=== PATIENT | female | born 2005 | race Two or more races ===

== ENCOUNTER 2024-10-11 16:29 | Emergency (ER) | payer MEDICAID, SELFPAY ==
[2024-10-11 16:59] VITALS: BP 102/67; PULSE 96; RESP 18; TEMP 37; O2SAT 97
[2024-10-11 17:23] VITALS: BMI 20.9
--- NOTE | 2024-10-11 18:40 | XR_ITS ---
Examination: Complete OB ultrasound greater than 14 weeks Date and time of exam: October 11, 2024 1051 hrs. Indications: Pelvic pain today Findings: Viable intrauterine single fetus with single amniotic sac presentation cephalic Cardiac motion 143 BPM Placenta fundal grade 1 Umbilical cord insertion seen Amniotic fluid index 6.1 cm spine anterior Cervix 7.5 cm Right ovary 3.2 x 1.8 x 2.9 cm arterial flow Left ovary obscured by bowel gas. Composite estimated gestational age based on BPD, head circumference, abdominal circumference, femur length is 17 weeks 5 days Estimated weight 206.2 g. Survey of intracranial anatomy, spinal anatomy, abdominal anatomy, four-chamber heart performed with no abnormalities identified. Impression: Viable intrauterine gestation cephalic presentation.
--- NOTE | 2024-10-11 18:41 | EDNOTE_ITS ---
ED Syncope RME/HPI General Chief Complaint: Syncope / Near Syncope Stated Complaint: SYNCOPAL EPISODE, 16 WKS PREG Time Seen by Provider: 10/11/24 18:30 Arrival date/time: 10/11/24 16:29 This is a 19-year-old female that comes in with complaints of near syncope that happened today while she was at [facility]. Patient states she was has a headache and had some dizziness prior to falling. Patient reports that she is 16 weeks . Patient is a 2 para 1. Patient has a history of cerebral palsy and has a seizure history in the past when she was younger. Patient does not take medication for this anymore. Related Data Home Medications ?Medication ?Instructions ?Recorded ?Confirmed vit no.95-ferrous 1 tab PO QDAY 04/26/23 04/28/23 fumarate 28 mg-folic acid 800 mcg tablet () Previous Rx's ?Medication ?Instructions ?Recorded cephalexin 500 mg capsule 500 mg PO BID #14 caps 10/11/24 Allergies Allergy/AdvReac Type Severity Reaction Status Date / Time No Known Allergies Allergy Verified 04/28/23 10:13 Review of Systems Review of Systems Systems Reviewed: All systems reviewed, normal except as documented Past Medical History Surgical History SURGICAL: Negative Section ED Exam General General appearance: Present alert and in no apparent distress Head Head exam: Present atraumatic Eye Eye exam: Present normal appearance, PERRL and EOMI ENT ENT exam: Present normal exam, normal oropharynx and mucous membranes moist Neck Neck exam: Present normal inspection, full ROM and trachea midline Chest Chest inspection: Present normal inspection and symmetric chest wall rise Respiratory Respiratory exam: Present normal lung sounds bilaterally Cardiovascular Cardiovascular exam: Present regular rate, normal rhythm and normal heart sounds Abdominal Exam Abdominal exam: Present soft Extremities Exam Extremities exam: Present normal inspection and full ROM Back Exam Back exam: Present normal inspection and full ROM Neurological Exam Neurological exam: Present alert, oriented X3 and CN II-XII intact Psychiatric Psychiatric exam: Present normal affect and normal mood Skin Skin exam: Present warm, dry, intact and normal color Course Quality Measures none Orders Category Date Time Status EKG (ED ONLY) *Do not use* NOW Care 10/11/24 18:41 Completed EKG (ED Only) Stat Exams 10/11/24 18:41 Draft US OB >= 14 weeks Fetus Stat Exams 10/11/24 18:40 Completed Beta HCG,Quantitative Stat Lab 10/11/24 18:26 Completed CBC Stat Lab 10/11/24 18:26 Completed Comprehensive Metabolic Panel Stat Lab 10/11/24 18:26 Completed Troponin I Stat Lab 10/11/24 18:26 Completed Urinalysis Stat Lab 10/11/24 20:38 Completed Urine Culture Stat Lab 10/11/24 20:38 Completed Acetaminophen Tab [Tylenol ES Tab] Med 10/11/24 19:40 Discontinued 1,000 mg PO X1 ONE Sodium Chloride 0.9% 1000 ml [Ns] 1,000 ml Med 10/11/24 18:40 Discontinued IV 999 mls/hr cefTRIAXone/D5w 1gm IV premix [Rocephin/D5w 1gm IV Med 10/11/24 20:54 Discontinued premix] 50 ml IV X1 Vital Signs Vital signs: Vital Signs Temperature 98.6 F 10/11/24 16:59 Pulse Rate 96 10/11/24 16:59 Respiratory Rate 18 10/11/24 16:59 Blood Pressure 102/67 10/11/24 16:59 Pulse Oximetry (%) 97 10/11/24 16:59 Oxygen Delivery Method Room Air 10/11/24 16:59 Procedures -ED EKG Interpretation #1: Date of EK10/11/24 Time of EK:08 Rate: 88 Interpretation: Interpreted by me (sinus rhythm ) EKG Impression: No ectopy, Normal QRS and Normal intervals Syncope MDM Narrative MDM Narrative:: US: Findings: Viable intrauterine single fetus with single amniotic sac presentation cephalic Cardiac motion 143 BPM Placenta fundal grade 1 Umbilical cord insertion seen Amniotic fluid index 6.1 cm spine anterior Cervix 7.5 cm Right ovary 3.2 x 1.8 x 2.9 cm arterial flow Left ovary obscured by bowel gas. Composite estimated gestational age based on BPD, head circumference, abdominal circumference, femur length is 17 weeks 5 days Estimated weight 206.2 g. Survey of intracranial anatomy, spinal anatomy, abdominal anatomy, four-chamber heart performed with no abnormalities identified. Impression: Viable intrauterine gestation cephalic presentation. Labs show white count of 11.2 hemoglobin of 11.6 and hematocrit of 35 BMP unremarkable urine showed some leukocyte Estrace with some white blood cells. I asked patient if she is having urinary symptoms she said she is. Will treat her with Rocephin. Patient given a liter of IV fluids. Follow up with primary provider in 1-2 days. Come back to ED if symptoms change or worsen Patient data External records reviewed:: [facility] previous records Clinical information provided by:: patient Social determinants that could affect healthcare access:: none Patient has the following chronic illnesses:: none How is presenting disease/condition affected by chronic disease/condition?: no chronic disease Evaluation data The following diagnostics were reviewed and interpreted by me:: lab results, radiology exam(s) and EKG tracing(s) Lab and/or radiology exams considered but not ordered:: None Interpretation Summary: See note Medications / Prescriptions Medications or Prescriptions considered but not ordered:: None Medication administrations:: Medication Administration History Discontinued Medications Acetaminophen (Acetaminophen 500 Mg Tablet) 1,000 mg PO X1 ONE Stop: 10/11/24 19:41 Last Admin: 10/11/24 19:53 Dose: 1,000 mg Documented By: LULA Sodium Chloride (Ns) 1,000 mls @ 999 mls/hr IV .Q1H1M ONE Stop: 10/11/24 19:40 Last Infusion: 10/11/24 20:51 Dose: Infused Documented By: Admin: 10/11/24 19:31 Dose: 999 mls/hr Documented By: LULA Ceftriaxone Sodium/Dextrose (Rocephin/D5w 1gm Iv Premix) 50 mls @ 100 mls/hr IV X1 ONE Stop: 10/11/24 21:23 Last Infusion: 10/11/24 22:46 Dose: Infused Documented By: Admin: 10/11/24 21:42 Dose: 100 mls/hr Documented By: LULA See MAR Consultations Consultation(s) initiated? (list below): No Diagnosis Syncope Differential Diagnosis: syncope due to orthostatic hypotension, vasovagal syncope and dehydration Most likely diagnosis given after review of the tests above:: dehydration Admission Indicated Admission indicated?: not indicated Admission Request Was there a request for admission?: No Disposition Plan Disposition Plan: Discharge Discharge Attestation Discharge Attestation: The patient and all family members were given an opportunity to ask questions and understood the discharge instructions. Discharge instructions specifically effects, indications for sooner follow up or return to the emergency department, and the expected course of current diagnosis. Patient condition: Stable Discharge Plan Plan Patient Disposition: HOME (Self Care) Patient condition on transfer: Stable Prescriptions/Referrals Prescriptions/Med Rec: New cephalexin 500 mg capsule 500 mg PO BID Qty: 14 0RF No Action PNV cmb#95-ferrous fumarate-FA [] 28 mg iron- 800 mcg Tablet 1 tab PO QDAY Referrals: Ernie Nunez MD [Primary Care Provider] - In 1 week Problem List Clinical Impression: UTI (urinary tract infection) Patient/Caregiver Discharge Instructions Discharge Activity: activity as tolerated Education Materials: ED CYSTITIS Female Adult Additional Instructions: drink plenty of fluid. Follow-up with [facility] in 1 to 2 days. Come back to the emergency room if symptoms change or worsen. Print Language: Ukrainian Stand Alone Forms: Marisol Award Info., Patient Portal Info Letter PA/ROLL CHANGER Supervising Physician PA/ROLL CHANGER Supervising Physician: REJI
--- NOTE | 2024-10-11 18:41 | EKG_ITS ---
[facility] Test Date: 2024-10-11 Pat Name: ASHKAN NAIDU Department: Room: - Gender: Female [place] Roofer Helper: : 2005 Requested By: Reyna Vann Order Number: [id number] Reading MD: Reyna Vann Measurements Intervals [place] Rate: 88 P: 46 RI: 148 QRS: 61 QRSD: 86 T: 39 QT: 358 QTc: 435 Interpretive Statements SINUS RHYTHM No previous ECG available for comparison /store/S0/[id number]/[id number].pdf
[2024-10-11 18:42] LABS: Basophils % (Auto) 0 % (0-2.5); Eosinophils # (Auto) 0.2 Thou/mm3 (0.0-0.5); Eosinophils % (Auto) 2 % (0-10); Hemoglobin 11.6 g/dL (12.0-16.0); Immature Granulocytes % (Auto) 0 % (0-0); Immature Granulocytes Auto 0.04 Thou/mm3 (0.00-0.00); Lymphocytes # (Auto) 2.6 Thou/mm3 (1.0-4.8); Lymphocytes % (Auto) 23 % (10-50); Mean Corpuscular HGB Conc 33.1 g/dl (31.0-37.0); Mean Corpuscular Hemoglobin 27.2 pg (25.0-35.0); Mean Corpuscular Volume 82 fL (80-100); Monocytes # (Auto) 0.7 Thou/mm3 (0.0-0.8); Monocytes % (Auto) 6 % (0-12); Neutrophils # (Auto) 7.7 Thou/mm3 (1.8-7.7); Neutrophils % (Auto) 68 % (37-80); Nucleated Red Blood Cell % 0 /100 WBC (0); Platelet Count 267 Thou/mm3 (140-440); RDW Standard Deviation 41.1 fL (36.4-46.3); Red Blood Count 4.26 Miln/mm3 (4.00-5.20); White Blood Count 11.2 Thou/mm3 (4.5-11.0)
[2024-10-11 19:06] LABS: Alanine Aminotransferase 11 U/L (10-49); Albumin, Serum 4.1 gm/dL (3.5-5.0); Albumin/Globulin Ratio 1.6 (1.2-2.2); Alkaline Phosphatase 81 U/L (46-116); Anion Gap 8 (7-16); Aspartate Amino Transferase < 10 U/L (0-34); BUN/Creatinine Ratio 14 Ratio (12-20); Bilirubin,Total 0.3 mg/dL (0.3-1.2); Blood Urea Nitrogen 7 mg/dL (9-23); Calcium 9.1 mg/dL (8.3-10.6); Calcium (Corrected) 9.1 mg/dL (8.5-10.1); Carbon Dioxide 25.4 mMol/L (20.0-31.0); Chloride 105 mMol/L (98-107); Creatinine (Component) 0.5 mg/dL (0.6-1.3); Estimated Creatinine Clearance 167.1 mL/min (>60); Globulin 2.5 gm/dL (2.3-3.5); Glucose 102 mg/dL (74-106); Osmolality,Calculated 273 (275-295); Potassium 3.9 mMol/L (3.4-5.1); Sodium 138 mMol/L (136-145); Total Protein 6.6 gm/dL (5.7-8.2); eGFR > 60 See Note
[2024-10-11 19:23] VITALS: BP 107/70; PULSE 95; RESP 17; TEMP 36.8; O2SAT 100
[2024-10-11] MEDS: SODIUM CHLORIDE 0.9% 1000 ML 1,000 ML 999 ML IV (19:31)
[2024-10-11 19:37] LABS: Beta HCG,Quantitative 31679 mIU/mL (<5.0); Troponin I < 0.002 ng/mL (0.0-0.045)
[2024-10-11] MEDS: ACETAMINOPHEN 500 MG TABLET 1000 MG PO (19:53)
[2024-10-11 20:44] LABS: Collection Type, Urine Clean Catch; RBC,Urine 0 /hpf (0-3)
[2024-10-11 20:49] LABS: Bacteria,Urine Rare; Bilirubin,Urine Negative (Negative); Blood,Urine Negative (Negative); Clarity,Urine Turbid (Clear/Hazy); Color,Urine Lt-Yellow (Lt Yel-Yel); Glucose, Urine Negative (Negative); Ketones,Urine Negative (Negative); Leukocyte Esterase,Urine Positive (Negative); Nitrite,Urine Negative (Negative); Protein,Urine Negative (Neg - Trace); Specific Gravity,Urine 1.019 (1.001-1.035); Squamous Epithelial Cell,Urine 8 /hpf (0-5); Urobilinogen,Urine Negative mg/dL (0.0-1.0); WBC,Urine 6 /hpf (0-5)
[2024-10-11] MEDS: cefTRIAXone/D5w 1gm IV premix 50 ML IV (21:42)
[2024-10-11 21:43] VITALS: BP 95/59; PULSE 78; RESP 18; TEMP 36.9; O2SAT 99
[2024-10-11 22:20] VITALS: BP 93/59; PULSE 83; RESP 17; TEMP 36.8; O2SAT 99
--- NOTE | 2024-10-11 23:29 | PD.EDADDENDU ---
Emergency Room Addendum Addendum Narrative: 230: Care assumed from Reyna Vann NP. Past medical, surgical, social and family history reviewed. Vitals and home medications reviewed. Results and treatment plan discussed. I will assume the care of the patient at this time and will follow the patient, pending ultrasound. RADIOLOGY DATA: I personally reviewed the radiology data and agree with the radiologist's interpretation. Examination: Complete OB ultrasound greater than 14 weeks Date and time of exam: October 11, 2024 1051 hrs. Indications: Pelvic pain today Findings: Viable intrauterine single fetus with single amniotic sac presentation cephalic Cardiac motion 143 BPM Placenta fundal grade 1 Umbilical cord insertion seen Amniotic fluid index 6.1 cm spine anterior Cervix 7.5 cm Right ovary 3.2 x 1.8 x 2.9 cm arterial flow Left ovary obscured by bowel gas. Composite estimated gestational age based on BPD, head circumference, abdominal circumference, femur length is 17 weeks 5 days Estimated weight 206.2 g. Survey of intracranial anatomy, spinal anatomy, abdominal anatomy, four-chamber heart performed with no abnormalities identified. Impression: Viable intrauterine gestation cephalic presentation. Dictated By: Josafat Corrales MD [id number]: I have spoken with the patient and discussed today?s findings, in addition to providing specific details for the plan of care. Questions are answered and there is an agreement with the plan. Re-assessment at the time of disposition demonstrates that the patient is in no acute distress. The patient has remained stable throughout the entire ED visit and is without objective evidence for acute process requiring urgent intervention or hospitalization. The patient is stable for discharge; counseling is provided and documented as above, discussed symptomatic treatment and specific conditions for return. MD Attestation Attestation ? Scribe Attestation: I, Thalia Pool, am scribing for and in the presence of Dr. Pike. Provider Notation: Although this document has been carefully reviewed, there may still be some phonetic and other typographical errors. These errors are purely grammatical due to imperfections in the software program and should not be construed in any way to compromise the substance of the patient's medical care during this visit.
== END 2024-10-11 23:51 | disposition home or self-care (01) ==
PROVIDERS: Emergency Provider Emergency Medicine; PCP Family Medicine
DX: O23.42 Unspecified infection of urinary tract in pregnancy, second trimester (principal); N39.0 Urinary tract infection, site not specified; Z3A.16 16 weeks gestation of pregnancy
CPT/HCPCS: 36415; 76805; 80053; 81001; 84484; 84702; 85025; 87086; 93005; 96361; 96365; 99284; J0696; J7030; A9270

== ENCOUNTER 2024-12-16 14:41 | Observation (INO) | payer MEDICAID, SELFPAY ==
[2024-12-16 14:51] VITALS: PULSE 84; RESP 18; RESP 98; TEMP 36.7
[2024-12-16 14:57] VITALS: TEMP 36.7; BMI 30.5
[2024-12-16 15:05] VITALS: BP 112/66; PULSE 92
[2024-12-16 15:09] LABS: Collection Type, Urine Clean Catch
[2024-12-16 15:16] LABS: Bacteria,Urine Rare; Bilirubin,Urine Negative (Negative); Blood,Urine Negative (Negative); Clarity,Urine Turbid (Clear/Hazy); Color,Urine Yellow (Lt Yel-Yel); Glucose, Urine Negative (Negative); Ketones,Urine Negative (Negative); Leukocyte Esterase,Urine Positive (Negative); Nitrite,Urine Negative (Negative); Protein,Urine Trace (Neg - Trace); RBC,Urine 6 /hpf (0-3); Specific Gravity,Urine 1.028 (1.001-1.035); Squamous Epithelial Cell,Urine 14 /hpf (0-5); WBC,Urine 29 /hpf (0-5)
[2024-12-16 16:05] LABS: Collection Type, Urine Clean Catch
[2024-12-16 16:25] LABS: Bilirubin,Urine Negative (Negative); Blood,Urine Negative (Negative); Clarity,Urine Clear (Clear/Hazy); Color,Urine Lt-Yellow (Lt Yel-Yel); Glucose, Urine Negative (Negative); Ketones,Urine Negative (Negative); Leukocyte Esterase,Urine Positive (Negative); Nitrite,Urine Negative (Negative); PH,Urine 6.5 (5.0-7.0); Protein,Urine Negative (Neg - Trace); RBC,Urine 2 /hpf (0-3); Specific Gravity,Urine 1.019 (1.001-1.035); Squamous Epithelial Cell,Urine 4 /hpf (0-5); Urobilinogen,Urine Negative mg/dL (0.0-1.0); WBC,Urine 19 /hpf (0-5)
--- NOTE | 2024-12-16 16:55 | PD.LDPN ---
Documentation for date of: 12/16/24 OB Labor Progress Note Status status: Category l Assessment and Plan Comments: Triage Note Patient is a 19yo with SIUP at 27+wk presenting to L&D for some intermittent lower abdominal discomfort. She notes she has some discomfort in her lower abdomen when she voids, however she does not have burning with urination, increased urgency or frequency. She notes sometimes when her baby moves it is very uncomfortable for her. And she has had some discomfort in the backs of her thighs since early , has not changed. She is concerned she may have a UTI, because she presented to ER 10/11 for a few concerns and was diagnosed with UTI and treated with a course of keflex. Review of labs shows that culture was negative, so she did not have a UTI at that time. She has had no lof, no vaginal bleeding. Normal movement. Current : This has been otherwise uncomplicated, she has had regular OB care with CNM Winter Owens Previous pregnancies: history of 1 prior uncomplicated vaginal delivery at term ROS negative other than what was described above. Vitals wnl, afebrile General: well developed, well nourished, no acute distress, conversant Cardiac: normal heart rate Lungs: breathing without distress Abdomen: soft, gravid, non-tender, no rebound or guarding Extremities: no pain with palpation of calves NST: Reassuring for gestational age, +accels, no decels, mod [place]: NO ctx Labs: First UA contaminated with 14 squam Second UA: 19 WBC, 2 RBC, 4 squam, no bacteria, +LE Assessment: Patient is a 19yo with SIUP at 27+wk with no evidence of UTI based on UA. Suspect normal physiologic discomforts of . Vitals wnl, benign exam. Reassuring status. Plan: -Will send UA for culture for confirmation of absence of UTI -Will also run NG/CT/trich testing off of urine sample to rule out vaginitis as cause of patient's symptoms -Patient instructed to inform her CNM at next scheduled visit of testing done today in triage -Discussed return precautions at length -Safe for discharge home at this time Zoie Galeano MD
[2024-12-17 10:11] LABS: BVAG Candida Negative (Negative); Bacterial Vaginosis Markers Positive (Negative); Candida glabrata Negative (Negative); Candida krusei PCR Negative (Negative); Trichomonas Negative (Negative)
[2024-12-17 10:21] LABS: Chlamydia trachomatis PCR Negative (Not Detect); Neisseria Gonorrhoeae DNA PCR Negative (Not Detect); Trichomonas Negative (Negative)
== END 2024-12-16 17:25 | disposition home or self-care (01) ==
PROVIDERS: Admitting Provider Obstetrics & Gynecology; Visit Provider Obstetrics & Gynecology
DX: O26.892 Other specified pregnancy related conditions, second trimester (principal); Z3A.27 27 weeks gestation of pregnancy; R10.30 Lower abdominal pain, unspecified
CPT/HCPCS: 59025; 59899; 81001; 81514; 87086; 87491; 87591; 87661

== ENCOUNTER 2025-02-04 20:37 | Observation (INO) | payer MEDICAID, SELFPAY ==
[2025-02-04 20:37] VITALS: BMI 32.2
[2025-02-04 21:04] VITALS: BP 103/68; PULSE 90; RESP 16; TEMP 37.1; O2SAT 97
--- NOTE | 2025-02-04 21:35 | EDNOTE_ITS ---
ED Headache RME/HPI General Chief Complaint: Dizziness Stated Complaint: DIZZY AND H/A Time Seen by Provider: 02/04/25 21:13 Arrival date/time: 02/04/25 20:37 19F at approximately 34 weeks and with no significant PMH presents to ED with 1 day of ABURTO, dizziness, and blurry vision. Patient denies LOC, fall/trauma, AMS, seizures, N/V, vaginal bleeding, and ab pain. Limitations: no limitations Related Data Home Medications ?Medication ?Instructions ?Recorded ?Confirmed vit no.95-ferrous 1 tab PO QDAY 04/26/2312/06 fumarate 28 mg-folic acid 800 mcg tablet () Previous Rx's ?Medication ?Instructions ?Recorded cephalexin 500 mg capsule 500 mg PO BID #14 caps 10/11 Allergies Allergy/AdvReac Type Severity Reaction Status Date / Time No Known Allergies Allergy Verified 12/16/24 14:51 Review of Systems Review of Systems Systems Reviewed: All systems reviewed, normal except as documented Constitutional Constitutional: Reports system reviewed and no additional complaints, except as documented, Reports as per HPI, Denies fever(s) and Reports headache(s) Eyes Eyes: Reports as per HPI and Reports blurry vision ENT Ears, Nose, Mouth, and Throat: Reports as per HPI, Denies disequilibrium, Reports headache(s) and Reports vertigo Cardiovascular Cardiovascular: Reports system reviewed and no additional complaints, except as documented, Denies chest pain and Denies dyspnea Respiratory Respiratory: Reports system reviewed and no additional complaints, except as documented, Denies cough and Denies dyspnea Gastrointestinal Gastrointestinal: Reports system reviewed and no additional complaints, except as documented, Denies abdominal pain, Denies nausea and Denies vomiting Neurologic Neurologic: Reports system reviewed and no additional complaints, except as documented, Denies confusion, Denies disequilibrium, Reports headache(s) and Reports vertigo Psychiatric Psychiatric: Denies confusion ED Exam General Limitations: Present no limitations General appearance: Present alert and in no apparent distress Head Head exam: Present atraumatic Eye Eye exam: Present normal appearance, PERRL and EOMI ENT ENT exam: Present normal exam, normal oropharynx and mucous membranes moist Neck Neck exam: Present normal inspection, full ROM and trachea midline Chest Chest inspection: Present normal inspection and symmetric chest wall rise Respiratory Respiratory exam: Present normal lung sounds bilaterally Cardiovascular Cardiovascular exam: Present regular rate, normal rhythm and normal heart sounds Abdominal Exam Abdominal exam: Present soft and normal bowel sounds Extremities Exam Extremities exam: Present normal inspection and full ROM Back Exam Back exam: Present normal inspection and full ROM Neurological Exam Neurological exam: Present alert, oriented X3 and CN II-XII intact Psychiatric Psychiatric exam: Present normal affect and normal mood Skin Skin exam: Present warm, dry, intact and normal color Course Quality Measures none Vital Signs Vital signs: Vital Signs Temperature 98.7 F 02/04/25 21:04 Pulse Rate 90 02/04/25 21:04 Respiratory Rate 16 02/04/25 21:04 Blood Pressure 103/68 02/04/25 21:04 Pulse Oximetry (%) 97 02/04/25 21:04 Oxygen Delivery Method Room Air 02/04/25 21:04 O2 at 95% on RA and WNLs Headache MDM Narrative MDM Narrative:: 19F at approximately 34 weeks and with no significant PMH presents to ED with 1 day of ABURTO, dizziness, and blurry vision. Patient denies LOC, fal l/trauma, AMS, seizures, N/V, vaginal bleeding, and ab pain. Physical exam reveals normal pupil response and EOM. CN II-XII grossly intact. Neck ROM intact. Patient is afebrile, calm, and alert. Cleared to OB. Patient data External records reviewed:: [facility] previous records Clinical information provided by:: patient Social determinants that could affect healthcare access:: none Patient has the following chronic illnesses:: none How is presenting disease/condition affected by chronic disease/condition?: no chronic disease Evaluation data The following diagnostics were reviewed and interpreted by me:: other (specify) (none) Lab and/or radiology exams considered but not ordered:: not ordered Interpretation Summary: n/a Medications / Prescriptions Medications or Prescriptions considered but not ordered:: not ordered Medication administrations:: n/a Consultations Consultation(s) initiated? (list below): No Diagnosis Differential diagnosis headache: migraine, tension headache, subarachnoid hemorrhage, headache, meningitis, sinusitis, postconcussion syndrome and other (pre-eclampsia) Most likely diagnosis given after review of the tests above:: ABURTO Admission Indicated Admission indicated?: not indicated Admission Request Was there a request for admission?: No Disposition Plan Disposition Plan: Discharge Discharge Attestation Discharge Attestation: The patient and all family members were given an opportunity to ask questions and understood the discharge instructions. Discharge instructions specifically effects, indications for sooner follow up or return to the emergency department, and the expected course of current diagnosis. Patient condition: Stable Discharge Plan Plan Patient Disposition: HOME (Self Care) Disposition Comment: Stable Prescriptions/Referrals Prescriptions/Med Rec: No Action cephalexin 500 mg capsule 500 mg PO BID Qty: 14 0RF PNV cmb#95-ferrous fumarate-FA [] 28 mg iron- 800 mcg Tablet 1 tab PO QDAY Problem List Clinical Impression: Headache Patient/Caregiver Discharge Instructions Education Materials: Self-Care for Headaches Additional Instructions: Please follow-up with PCP/OBGYN within 24-48 hours and return immediately if symptoms worsen. Print Language: Thai Stand Alone Forms: Patient Portal Info Letter EMERSON/JULIA Supervising Physician EMERSON/JULIA Supervising Physician: Dr. Lloyd
[2025-02-04 21:48] VITALS: BP 117/59; PULSE 93; RESP 18; RESP 99; TEMP 36.7; BMI 32.0
== END 2025-02-04 22:40 | disposition home or self-care (01) ==
LOC: SERX 21:16 → S4SX 22:38
PROVIDERS: Admitting Provider Obstetrics & Gynecology; Emergency Provider Emergency Medicine; PCP Family Medicine; Visit Provider Obstetrics & Gynecology
DX: O26.893 Other specified pregnancy related conditions, third trimester (principal); Z3A.34 34 weeks gestation of pregnancy; R51.9 Headache, unspecified
CPT/HCPCS: 59899; 99281; G0378

== ENCOUNTER 2025-03-07 10:34 | Inpatient (IN) | payer MEDICAID, SELFPAY ==
[2025-03-07] VITALS (17 sets, daily range): BP systolic 105–142; BP diastolic 65–94; PULSE 67–126; RESP 15–99; TEMP 36.1–36.7; O2SAT 96–100; BMI 33.0
[2025-03-07] MEDS: TERBUTALINE SULF INJ 1 MG/ML VIAL 0.5 MG SC (10:40)
--- NOTE | 2025-03-07 10:49 | ESHP_ITS ---
Documentation for date of: 03/07/25 OB Labor/Induct. HPI History of Present Illness Chief complaint: Active labor with breech presentation : 2 Para: 1 Term pregnancies: 1 pregnancies: 0 Living children: 1 History of Abortions: Spontaneous and Elective: 0 History of Vaginal deliveries: 1 History of sections: No History of : No LENKA: 03/24/25 Gestational Age (weeks): 38 History of present illness: Patient is a 2 para 1 with an estimated due date of 03/24/2025 who presented to labor and delivery triage with complete cervical dilation and a foot-length breech presentation. She has a history of a previous full-term vaginal delivery in 2022, with the fetus weighing 7 pounds and 6 ounces. On arrival, patient's cervix was dilated to 10 centimeters, fully effaced, with parts palpable in the vagina. heart tones showed a baseline of 135 with moderate variability and present accelerations. Patient was experiencing contractions every 5 minutes. Due to breech presentation and complete cervical dilation, patient was admitted for an urgent section. At the time of this documentation, patient has undergone delivery. Patient's obstetric history includes GTPAL: G2 T2 L2. Current care was received at [facility]. Surgical history now includes section on SunMar 09 2025. Toxicology screening was negative. Patient is immune to Rubella. Diagnostic Test Results and Labs: - Panel (08/11/2024): Blood group: O positive Antibody screen: negative Hepatitis B: negative Hepatitis C: negative RPR: non-reactive Rubella: immune Gonorrhea: negative Chlamydia: negative Hemoglobin: 13.5 g/dL Urine culture: bacteria <100,000 CFU Toxicology screening: negative SMA testing: negative Cystic fibrosis testing: negative - NIPT: negative for trisomy 21, 18, 13; male gender; negative for monosomy X, XYY, XXY, XXX syndrome - Level 2 ultrasound: Anatomy survey: within normal limits Initially small muscular VSDs visualized, resolved on subsequent ultrasounds Past Medical History Surgical History SURGICAL: Negative Section Meds Home Medications and Allergies Home Medications ?Medication ?Instructions ?Recorded ?Confirmed ?Type vit no.95-ferrous 1 tab PO QDAY 04/26/2302/07 History fumarate 28 mg-folic acid 800 mcg tablet () Allergies Allergy/AdvReac Type Severity Reaction Status Date / Time No Known Allergies Allergy Verified 03/07/25 13:01 OB Exam Physical Exam Vital signs: Pulse BP Pulse Ox 83 142/94 H 98 03/07/25 10:47 03/07/25 10:47 03/07/25 10:48 Constitutional Constitutional: no acute distress Routine HEENT Exam Head: Present normocephalic and atraumatic Eye: Present EOMI and PERRL ENT: Present mucous membranes moist Routine Neck Exam Neck: Present supple and trachea midline Routine Cardiovascular Exam Cardiovascular: Present RRR Routine Abdominal Exam Abdominal: Present soft and normoactive bowel sounds Detailed Labor and Delivery Exam Dilation (cm): 10 Effacement (%): 100 Cervix position: mid station: +1 Consistency: soft Presentation: Footling Membranes: intact Baseline heart rate: 135 monitor accelerations: 15x15 monitor decelerations: None Comments: - Obstetric: Cervix is 10 centimeters, fully effaced, with parts palpable in the vagina. heart tones baseline 135, moderate variability, axils present. Contractions every 5 minutes. Routine Extremities Exam Extremities: Present full ROM Routine Skin Exam Skin: Present intact, dry and warm Routine Neurological Exam Neurological: Present alert, oriented X3 and CN II-XII intact Routine Psychiatric Exam Psychiatric: Present normal affect and normal thought process OB Results Labs 03/08/25 05:00 OB Assessment & Plan Assessment and Plan (1) delivery delivered: Status: Acute (2) Breech presentation: Status: Acute Assessment and plan: Breech presentation in labor at term: - Patient presented with complete cervical dilation and foot-length breech presentation at 37 weeks gestation. - History of previous full-term vaginal delivery in 2022. - Current uncomplicated with normal labs and imaging studies. - Level 2 ultrasound showed initially small muscular VSDs that resolved on subsequent scans. - Cervix 10 cm dilated, fully effaced, with parts palpable in the vagina. - heart tones show baseline of 135 bpm with moderate variability and accelerations present. - Contractions occurring every 5 minutes. Plan: - Admit to inpatient for urgent section. - Perform delivery (refer to operative report for details). - Continue routine post-operative and care.
[2025-03-07] MEDS: ceFAZolin/D5W 2 GM IV 2 GM/100 ML BAG IV (11:05)
[2025-03-07 11:39] LABS: Basophils # (Auto) 0.1 Thou/mm3 (0.0-0.2); Basophils % (Auto) 1 % (0-2.5); Eosinophils # (Auto) 0.2 Thou/mm3 (0.0-0.5); Eosinophils % (Auto) 2 % (0-10); Hematocrit 33.5 % (36.0-46.0); Hemoglobin 11.1 g/dL (12.0-16.0); Immature Granulocytes % (Auto) 1 % (0-0); Immature Granulocytes Auto 0.07 Thou/mm3 (0.00-0.00); Lymphocytes # (Auto) 3.8 Thou/mm3 (1.0-4.8); Lymphocytes % (Auto) 31 % (10-50); Mean Corpuscular HGB Conc 33.1 g/dl (31.0-37.0); Mean Corpuscular Hemoglobin 25.9 pg (25.0-35.0); Mean Corpuscular Volume 78 fL (80-100); Monocytes % (Auto) 8 % (0-12); Neutrophils # (Auto) 7.3 Thou/mm3 (1.8-7.7); Neutrophils % (Auto) 59 % (37-80); Nucleated Red Blood Cell % 0 /100 WBC (0); Platelet Count 279 Thou/mm3 (140-440); RDW Standard Deviation 44.1 fL (36.4-46.3); Red Blood Count 4.28 Miln/mm3 (4.00-5.20); White Blood Count 12.4 Thou/mm3 (4.5-11.0)
[2025-03-07 12:13] LABS: Syphilis Nonreactive (Nonreactive)
[2025-03-07] MEDS: KETOROLAC INJ 30 MG/ML VIAL IVP ×2 (16:17→22:50)
[2025-03-07] MEDS: OXYTOCIN in NS 20 units 20 UNIT/1,000 ML BAG 125 UNIT IV (16:18)
--- NOTE | 2025-03-07 21:44 | XR_ITS ---
Examination: AP chest single view TECHNIQUE: AP semiupright portable chest single view Date and time: March 07, 2025, 10 0 5:00 PM INDICATIONS: Shortness of breath chest pain today. FINDINGS: Subsegmental atelectasis in the left upper lobe Normal heart size No lobar pneumonia The osseous structures are intact IMPRESSION: Subsegmental atelectasis in the left upper lobe
--- NOTE | 2025-03-07 21:49 | PC.NURSE ---
Dr Gilbert notified about pts complaint of mid chest pain and SOB. Pts vs stable, fundus firm with scant bleeding at this time. new order for CXR and IS received.
[2025-03-07] MEDS: RINGERS LACTATED 1000 ML 1,000 ML 125 ML IV (23:36)
[2025-03-08 03:43] VITALS: BP 114/68; PULSE 82; RESP 17; TEMP 36.4; O2SAT 98
[2025-03-08] MEDS: KETOROLAC INJ 30 MG/ML VIAL IVP (05:38)
[2025-03-08 06:29] LABS: Basophils # (Auto) 0.1 Thou/mm3 (0.0-0.2); Basophils % (Auto) 0 % (0-2.5); Eosinophils # (Auto) 0.1 Thou/mm3 (0.0-0.5); Eosinophils % (Auto) 1 % (0-10); Hematocrit 28.1 % (36.0-46.0); Hemoglobin 9.2 g/dL (12.0-16.0); Immature Granulocytes % (Auto) 1 % (0-0); Immature Granulocytes Auto 0.09 Thou/mm3 (0.00-0.00); Lymphocytes # (Auto) 2.7 Thou/mm3 (1.0-4.8); Lymphocytes % (Auto) 16 % (10-50); Mean Corpuscular HGB Conc 32.7 g/dl (31.0-37.0); Mean Corpuscular Hemoglobin 26.4 pg (25.0-35.0); Mean Corpuscular Volume 81 fL (80-100); Monocytes # (Auto) 1.4 Thou/mm3 (0.0-0.8); Monocytes % (Auto) 9 % (0-12); Neutrophils % (Auto) 74 % (37-80); Nucleated Red Blood Cell % 0 /100 WBC (0); Platelet Count 232 Thou/mm3 (140-440); RDW Standard Deviation 45.4 fL (36.4-46.3); Red Blood Count 3.49 Miln/mm3 (4.00-5.20); White Blood Count 16.3 Thou/mm3 (4.5-11.0)
[2025-03-08 08:00] VITALS: BP 108/73; PULSE 76; RESP 18; TEMP 37.2; O2SAT 98
--- NOTE | 2025-03-08 09:27 | PD.LDDELS ---
Data (Spencer) Data Hx Section: No : 2 Term: 1 : 0 Livin Abortions: Spontaneous & Theraputic: 0 Delivery Data (Spencer) Labor Data Initiation of labor: Spontaneous Induction/Augmentation Agent: None ROM date: 03/07/25 ROM time: 11:02 Amniotic membrane rupture type: Artificial Amniotic fluid description: Clear Delivery Data Onset of labor date: 03/07/25 Onset of labor time: 01:00 Complete dilation date: 03/07/25 Complete dilation time: 10:40 delivery date: 03/07/25 delivery time: 11:03 Placenta delivery date: 03/07/25 Placenta delivery time: 11:03 Stage 1 total time: Labor - Stage 1 Duration 9 hours and 40 minutes Delivered by: Israel Gilbert Delivery nurse: Claudia Crawford nurse: Obed Kumar Senior Process Analyst at delivery: Yes (juan) Other staff at delivery: Mady PENDLETON Delivery Method Delivery method: Low Transverse Presentation: Breech Anesthesia Type Anesthesia Type: General Placenta Placenta delivery description: Spontaneous Cord blood sent to lab: Yes cord blood collection: Cord Blood Type Episiotomy Episiotomy description: None Umbilical Cord cord description: 3 Vessels Data (Spencer) Data 's gender: Male weight (gms): 3380 g Weight (pounds): 7 lbs and 7.2 ozs 1 minute: 3 5 minutes: 9
--- NOTE | 2025-03-08 09:27 | PD.GYNPROC ---
Operative Note - SLOT MACHINE DEPARTMENT FLOORPERSON Procedure Date of procedure: 03/08/25 Procedure Performed: Stat primary low-transverse section Indication: Patient presented in labor with full dilatation of cervix and footling breech Anesthesia type: General Procedure description: Informed consent was obtained. The patient was brought to the operating room and identified with two patient identifiers. She was placed in the supine position, and spinal anesthesia was administered. After confirming adequate anesthesia, the abdomen and perineum were prepped and draped in the usual sterile fashion. A No catheter was inserted for continuous bladder drainage. A low transverse (Pfannenstiel) skin incision was made using a scalpel and carried through subcutaneous tissue to the rectus fascia. The previous scar was identified and excised in its entirety. The fascia was incised transversely and dissected off the rectus muscles both superiorly and inferiorly. The rectus bellies were in the midline, and the peritoneum was entered bluntly with the surgeon?s finger. The peritoneal opening was extended to allow adequate exposure. An Juve O-ring retractor was placed for optimal visualization. The lower uterine segment was palpated, and the bladder flap was reflected inferiorly. A low transverse uterine incision (Zeeshan Miller) was made with a scalpel and extended bluntly. The amniotic membranes were ruptured, and clear fluid was released. The fetus was noted to be in breech presentation. The infant was delivered by breech extraction without difficulty. The shoulders and head were delivered smoothly with gentle traction. The umbilical cord was doubly clamped and cut, and the infant was handed to the awaiting team. Cord gases were obtained. The placenta was delivered with gentle traction on the cord. The uterine cavity was cleared of membranes and clots. The hysterotomy angles were secured with Allis clamps. Persistent bleeding was noted from the left uterine artery. Hemostasis was achieved with placement of compression sutures using 0 Vicryl. The uterine incision was closed in two layers using #1 Monocryl: the first layer was a running locked suture to approximate the myometrium, and the second layer imbricated the serosa and myometrium. Hemostasis was confirmed. The Juve retractor was removed. Peritoneal edges and rectus muscles were reapproximated. Rectus fascia was closed with running 0 Vicryl. The subcutaneous tissue was irrigated with warm saline, and bleeding points were cauterized using Bovie electrocautery. Subcutaneous tissue was approximated with 3-0 Vicryl. The skin was closed using INSORB absorbable onel. A sterile dressing was applied. The patient was cleaned, undraped, and transferred to the recovery room in stable and awake condition. She tolerated the procedure well. All counts were correct ?2. Urine output (mL): 600 Specimen: none Estimated blood loss (ml): 600 Surgical staff Operation Date: 03/07/25 11:15 Case Staff LOOPER FIXER: Aakash Mayers RN First Assistant: Lizeth No Diagnosis Discharge Diagnosis (1) Breech presentation: Status: Acute (2) delivery delivered: Status: Acute Problem List Completed Was Problem List Reviewed/Reconciled?: Yes
--- NOTE | 2025-03-08 09:33 | ESPR_ITS ---
Subjective Subjective Interval history: Delivery type: Patient doing well this morning. No acute complaints. Ambulating, tolerating p.o. and voiding without difficulty. HTN/Pre-Eclampsia screen: No chest pain, shortness of breath, headache, visual changes, epigastric or right upper quadrant pain. Breast-feeding, lochia diminishing. Bowel: Flatus+ Exam Vital Signs Temp Pulse Resp BP Pulse Ox O2 Del Method O2 Flow Rate 98.9 F 76 18 108/73 98 Room Air 6 03/08/25 08:00 03/08/25 08:00 03/08/25 08:00 03/08/25 08:00 03/08/25 08:00 03/08/25 08:00 03/07/25 12:30 Constitutional Constitutional: no acute distress Routine HEENT Exam Head: Present normocephalic and atraumatic Eye: Present EOMI and PERRL ENT: Present mucous membranes moist Routine Neck Exam Neck: Present supple and trachea midline Routine Respiratory Exam Respiratory: Present chest non-tender, lungs clear, normal breath sounds and no resp distress Routine Cardiovascular Exam Cardiovascular: Present RRR Routine Abdominal Exam Abdominal: Present soft and normoactive bowel sounds Routine Extremities Exam Extremities: Present full ROM Routine Skin Exam Skin: Present intact, dry and warm Routine Neurological Exam Neurological: Present alert, oriented X3 and CN II-XII intact Routine Psychiatric Exam Psychiatric: Present normal affect and normal thought process Objective Labs 03/08/25 05:00 Labs: Laboratory Results - last 24 hr 03/07/25 03/08/25 11:20 05:00 WBC 12.4 H 16.3 H RBC 4.28 3.49 L Hgb 11.1 L 9.2 L Hct 33.5 L 28.1 L MCV 78 L 81 MCH 25.9 26.4 MCHC 33.1 32.7 RDW Std Deviation 44.1 45.4 Plt Count 279 232 D Neut % (Auto) 59 74 Lymph % (Auto) 31 16 Fergus % (Auto) 8 9 Eos % (Auto) 2 1 Baso % (Auto) 1 0 Neut # (Auto) 7.3 12.0 H Lymph # (Auto) 3.8 2.7 Fergus # (Auto) 1.0 H 1.4 H Eos # (Auto) 0.2 0.1 Baso # (Auto) 0.1 0.1 Immature Gran # (Auto) 0.07 H 0.09 H Absolute Nucleated RBC 0.00 0.00 Immature Gran % 1 H 1 H Nucleated RBC % 0 0 Syphilis Serology Nonreactive Blood Type O Positive Antibody Screen NEGATIVE Blood Bank Wristband ID Yes Assessment & Plan Problem List (1) Breech presentation: Status: Acute (2) delivery delivered: Status: Acute Assessment and plan: 1. Continue routine /post-op care 2. Labs reviewed, cbc appropriate 3. Remove dressing/No 4. Encourage to ambulate, shower 5. Encourage PO intake, breast feeding Time Spent With Patient Time: Total time spent is greater than 50% in coordination of care (as documented) at patient's floor/unit and/or counseling patient:
[2025-03-08] MEDS: Milk Of Magnesia Susp 30 ML UDC PO (09:48)
[2025-03-08] MEDS: ACETAMINOPHEN 325 MG TABLET 650 MG PO (09:48)
[2025-03-08] MEDS: DOCUSATE SOD 100 MG CAPSULE PO (09:48)
[2025-03-08 11:05] VITALS: BP 103/71; PULSE 85; RESP 18; TEMP 36.5; O2SAT 97
[2025-03-08] MEDS: IBUPROFEN TAB 400 MG TABLET 800 MG PO (11:56)
[2025-03-08 16:30] VITALS: BP 109/71; PULSE 91; RESP 16; TEMP 36.6; O2SAT 98
[2025-03-08] MEDS: HYDROcodone/APAP 5/325 TABLET 1 TAB PO (18:21)
[2025-03-08 20:00] VITALS: BP 101/67; PULSE 90; RESP 18; TEMP 36.7; O2SAT 98
[2025-03-08] MEDS: HYDROcodone/APAP 5/325 TABLET 2 TAB PO (23:59)
[2025-03-09] MEDS: IBUPROFEN TAB 400 MG TABLET 800 MG PO (02:11)
[2025-03-09] MEDS: SIMETHICONE 80 MG CHEW PO ×2 (02:11→08:21)
[2025-03-09 04:00] VITALS: BP 113/73; PULSE 75; RESP 16; TEMP 36.7; O2SAT 97
[2025-03-09] MEDS: HYDROcodone/APAP 5/325 TABLET 1 TAB PO ×2 (04:04→08:21)
--- NOTE | 2025-03-09 07:43 | PD.LDPPPRG ---
Subjective Subjective Interval history: Patient is a 19-year-old G2 now P2002 status post emergent primary 03/07/2025 for footling breech presentation in labor by Dr. Balderrama. Patient is sitting comfortably in bed breast-feeding. Her pain is controlled with [place] and Motrin. Her bleeding is minimal. She is tolerating a general diet, and passing flatus. She is ready to go home. She has a 2-1/2-year-old daughter at home. Father the baby is at bedside. Exam Vital Signs Temp Pulse Resp BP Pulse Ox O2 Del Method O2 Flow Rate 98.1 F 75 16 113/73 97 Room Air 6 03/09/25 04:00 03/09/25 04:00 03/09/25 04:00 03/09/25 04:00 03/09/25 04:00 03/09/25 04:00 03/09/25 04:00 Narrative Exam Patient is alert and oriented x 3. Fundus is firm. Incision is clean dry and intact. Extremities show no significant edema or erythema. Objective Labs 03/08/25 05:00 Assessment & Plan Problem List (1) delivery delivered: Problem details: Discharge instructions were given. No heavy lifting, tampons, douching, intercourse, bathtubs x 6 weeks. No exercise x 6 weeks. Patient to ambulate frequently. Will discharge home today Status: Acute (2) Breech presentation: Status: Acute Time Spent With Patient Time: Total time spent is greater than 50% in coordination of care (as documented) at patient's floor/unit and/or counseling patient: Time with patient: less than 15 minutes
--- NOTE | 2025-03-09 07:45 | ESDS_ITS ---
DS: Providers Provider Date of admission: 03/07/25 10:47 Primary care physician: Physician No Primary/Family Admitting Provider: Israel Gilbert MD Attending Provider on Admission: Israel Gilbert MD Consults: 03/07/25 11:55 Referral Routine Comment: Attending Provider on DC: Nikki [facility] ([facility]) Discharging Provider: Nikki Cheney MD ([facility]) Anticipated date of discharge: 03/09/25 DS: Diagnosis Discharge Diagnosis (1) delivery delivered: Status: Acute Assessment & Plan: Instructions given. No heavy lifting, tampons, douching, bathtubs x 6-week no heavy exercise x 6 weeks (2) Breech presentation: Status: Acute Problem List Completed Was Problem List Reviewed/Reconciled?: Yes Summary/Hosp Course Brief History: Patient is a 2 para 1 with an estimated due date of 03/24/2025 who presen swapna to labor and delivery triage with complete cervical dilation and a foot- length breech presentation. She has a history of a previous full-term vaginal delivery in 2022, with the fetus weighing 7 pounds and 6 ounces. On arrival, patient's cervix was dilated to 10 centimeters, fully effaced, with parts palpable in the vagina. heart tones showed a baseline of 135 with moderate variability and present accelerations. Patient was experiencing contractions every 5 minutes. Due to breech presentation and complete cervical dilation, patient was admitted for an urgent section. At the time of this documentation, patient has undergone delivery. Patient's obstetric history includes GTPAL: G2 T2 L2. Current care was received at [facility]. Surgical history now includes section on SunMar 09 2025. Toxicology screening was negative. Patient is immune to Rubella. Diagnostic Test Results and Labs: - Panel (08/11/2024): Blood group: O positive Antibody screen: negative Hepatitis B: negative Hepatitis C: negative RPR: non-reactive Rubella: immune Gonorrhea: negative Chlamydia: negative Hemoglobin: 13.5 g/dL Urine culture: bacteria <100,000 CFU Toxicology screening: negative SMA testing: negative Cystic fibrosis testing: negative - NIPT: negative for trisomy 21, 18, 13; male gender; negative for monosomy X, XYY, XXY, XXX syndrome - Level 2 ultrasound: Anatomy survey: within normal limits Initially small muscular VSDs visualized, resolved on subsequent ultrasounds Peripartum Data Delivery Method: Low Transverse Episiotomy Description: None Procedures: Procedures Operation Date: 03/07/25 11:15 Actual Procedure Side Surgeon p in OB Israel Gilbert MD complications: none Status at Discharge Functional status at discharge: independent ambulation Overall status at discharge: patient is progressing back to baseline Time Spent with Patient Time attestation: Total time spent providing and/or coordinating discharge services: Time spent: Less than 30 minutes Exam Vital Signs Temp Pulse Resp BP Pulse Ox O2 Del Method O2 Flow Rate 98.1 F 75 16 113/73 97 Room Air 6 03/09/25 04:00 03/09/25 04:00 03/09/25 04:00 03/09/25 04:00 03/09/25 04:00 03/09/25 04:00 03/09/25 04:00 Narrative Exam Patient is alert and oriented x 3. No apparent distress. Fundus is firm. Extremities show no cyanosis clubbing or edema. Incision is clean dry and intact. Discharge Plan Plan Patient Disposition: HOME (Self Care) Patient condition on transfer: Stable Prescriptions/Referrals Prescriptions/Med Rec: New hydrocodone-acetaminophen 5-325 mg Tablet 2 tab PO Q6HR MDD 8 Qty: 40 0RF ibuprofen 400 mg Tablet 800 mg PO Q8HR PRN (Reason: Pain Scale 4-6 (Moderate) Qty: 60 0RF docusate sodium 100 mg Capsule 100 mg PO QDAY Qty: 30 0RF Continued PNV cmb#95-ferrous fumarate-FA [] 28 mg iron- 800 mcg Tablet 1 tab PO QDAY Referrals: No Primary/Family,Physician [Primary Care Provider] - Patient/Caregiver Discharge Instructions Discharge Activity: activity as tolerated Other Discharge Activity Instructions:: No heavy lifting, tampons, douching, bathtubs or intercourse for 6 weeks. No exercise for 6 weeks Other Discharge Diet Instructions: General Diet as tolerated. Drink lots of water. Education Materials: After Delivery Concerns, Breast Care After , After a , C Section Dc Print Language: Norwegian Activity Restrictions/Additional Instructions: Call for heavy vaginal bleeding, fevers of 101.1 ?F or higher, heavy vaginal bleeding, or severe depression. [facility] Stand Alone Forms: Marisol Award Info., Patient Portal Info Letter Discharge Order Discharge Orders: Discharge (Routine); Ordered 03/09/25 Ordered By: Nikki Cheney ([facility]) Planned Discharge Date 03/09/25 (2) Breech presentation Qualifiers: Fetus number: single or unspecified fetus Qualified Code(s): O32.1XX0 - Maternal care for breech presentation, not applicable or unspecified
[2025-03-09 08:00] VITALS: BP 130/80; PULSE 88; RESP 17; TEMP 36.7; O2SAT 97
[2025-03-09] MEDS: DOCUSATE SOD 100 MG CAPSULE PO (08:21)
== END 2025-03-09 09:53 | disposition home or self-care (01) | DRG 540 ==
LOC: S4SX 10:36 → S4NX 11:13 → S4SX 11:23
PROVIDERS: Admitting Provider Obstetrics & Gynecology; Visit Provider Obstetrics & Gynecology
PROC: (CPT 59514; principal; 2025-03-07 11:00)
DX: O32.8XX0 Maternal care for other malpresentation of fetus, not applicable or unspecified (principal); Z37.0 Single live birth; Z3A.38 38 weeks gestation of pregnancy
CPT/HCPCS: 36415; 71045; 85025; 86780; 86850; 86900; 86901; A4649; J0689; J1100; J1171; J1885; J2250; J2405; J2590; J2704; J3010; J3105; J3490; J7120; A9270

== ENCOUNTER 2025-06-01 17:18 | Emergency (ER) | payer MEDICAID, SELFPAY ==
[2025-06-01 17:19] VITALS: BMI 27.3
[2025-06-01 17:55] VITALS: BP 117/81; PULSE 89; RESP 18; TEMP 36.9; O2SAT 99
--- NOTE | 2025-06-01 18:04 | PD.EDWOUND ---
ED Wound/Laceration-RME/HPI General Chief Complaint: Wound/Laceration Stated Complaint: LEFT LOWER ABD OPEN WOUND S/P C-SEC X COUPLE HRS Time Seen by Provider: 06/01/25 18:07 Source: patient Arrival date/time: 06/01/25 17:18 20-year-old female with no known medical history presents to the emergency room with a chief complaint of a scar opening. Mode of arrival: ambulatory Limitations: no limitations Related Data Home Medications ?Medication ?Instructions ?Recorded ?Confirmed vit no.95-ferrous 1 tab PO QDAY 04/26/23 03/07/25 fumarate 28 mg-folic acid 800 mcg tablet () Previous Rx's ?Medication ?Instructions ?Recorded docusate sodium 100 mg capsule 100 mg PO QDAY #30 caps 03/09/25 hydrocodone 5 mg-acetaminophen 325 2 tab PO Q6HR Patient rated pain 9 03/09/25 mg tablet to 10 #40 tabs ibuprofen 400 mg tablet 800 mg (2 x 400 mg) PO Q8HR PRN 03/09/25 Pain Scale 4-6 (Moderate #60 tabs Allergies Allergy/AdvReac Type Severity Reaction Status Date / Time No Known Allergies Allergy Verified 06/01/25 17:21 Review of Systems Review of Systems Systems Reviewed: All systems reviewed, normal except as documented Constitutional Constitutional: Reports system reviewed and no additional complaints, except as documented, Denies fatigue, Denies fever(s), Denies headache(s) and Denies weakness Eyes Eyes: Reports system reviewed and no additional complaints, except as documented, Denies blurry vision and Denies change in vision ENT Ears, Nose, Mouth, and Throat: Reports system reviewed and no additional complaints, except as documented, Denies otalgia, Denies headache(s), Denies nasal congestion, Denies throat swelling and Denies vertigo Cardiovascular Cardiovascular: Reports system reviewed and no additional complaints, except as documented, Denies chest pain, Denies dyspnea and Denies dyspnea on exertion Respiratory Respiratory: Reports system reviewed and no additional complaints, except as documented, Denies chest congestion, Denies cough, Denies dyspnea, Denies dyspnea on exertion and Denies wheezing Gastrointestinal Gastrointestinal: Reports system reviewed and no additional complaints, except as documented, Denies abdominal pain, Denies cramping, Denies nausea and Denies vomiting Genitourinary Genitourinary: Reports system reviewed and no additional complaints, except as documented Musculoskeletal Musculoskeletal: Reports system reviewed and no additional complaints, except as documented and Denies back pain Integumentary/Breasts Skin/Breast: Reports system reviewed and no additional complaints, except as documented and Reports wounds Neurologic Neurologic: Reports system reviewed and no additional complaints, except as documented, Denies confusion, Denies headache(s), Denies lack of coordination, Denies vertigo and Denies weakness Psychiatric Psychiatric: Reports system reviewed and no additional complaints, except as documented, Denies anxiety, Denies confusion, Denies depression, Denies paranoia, Denies suicidal ideation and Denies tactile hallucinations Endocrine Endocrine: Reports system reviewed and no additional complaints, except as documented and Denies fatigue Hematologic/Lymphatic Hematologic/Lymphatic: Reports system reviewed and no additional complaints, except as documented and Denies lymphadenopathy Allergic/Immunologic Allergic/Immunologic: Reports system reviewed and no additional complaints, except as documented, Denies throat swelling, Denies urticaria and Denies wheezing Past Medical History Past Medical History NEUROLOGIC: Positive Cerebral Palsy; Negative Neurological Disorders or Seizures CARDIAC: Negative Cardiac Disorders or Congestive Heart Failure RESPIRATORY: Negative Chronic Obstructive Pulmonary Disease (COPD) GASTROINTESTINAL: Negative Gastrointestinal Disorders or Hepatitis GENITOURINARY: Negative Genitourinary Disorders or Renal Disease REPRODUCTIVE: Positive Previous Pregnancies; Negative Pelvic Inflammatory Disease MUSCULOSKELETAL: Negative Musculoskeletal Disorders ENDOCRINE: Negative Endocrine Disorders, Diabetes Mellitus Type 1 or Diabetes Mellitus Type 2 HEMATOLOGIC: Negative Blood Disorders or Anemia PSYCHO/SOCIAL: Positive Depression (NO MEDICATION) and Anxiety (NO MEDICATION) OTHER HISTORY: Negative Hospitalization, Autoimmune Disease, Down Syndrome, Developmental Delay, Shingles, Falls, Blood Transfusions, Blood Transfusion Reaction, Anesthesia Reactions, Organ Transplant, Chemotherapy, Radiation Therapy, Hyperbaric Therapy, MRSA, Human Immunodeficiency Virus (HIV), Chicken Pox, Measles, Mumps, Rubella (Welsh Measles), Pertussis, Clostridium Difficile or Cancer Family History FAMILY HISTORY: Positive Family Cancer (PATERNAL GRANDMOTHER - CA (UNKNOWN)); Negative Family Psychiatric Problems, Family Respiratory Disorders, Family Cardiac Disorders, Family Gastrointestinal Problems, Family Surgery or Family Anesthesia Reaction Surgical History SURGICAL: Positive Abdominal Surgery (pyloric stenosis as infant); Negative Cardiac Surgery, Endocrine Surgery, Ear Surgery, Nephrectomy, Joint Replacement, Neurologic Surgery, Lumpectomy, Section or Organ Transplant Social History SMOKING STATUS: Never smoker SECOND HAND EXPOSURE: No SUBSTANCE USE: does not use ED Exam General Limitations: Present no limitations General appearance: Present alert and in no apparent distress Head Head exam: Present atraumatic Eye Eye exam: Present normal appearance, PERRL and EOMI ENT ENT exam: Present normal exam, normal oropharynx and mucous membranes moist Neck Neck exam: Present normal inspection, full ROM and trachea midline Chest Chest inspection: Present normal inspection and symmetric chest wall rise Respiratory Respiratory exam: Present normal lung sounds bilaterally Cardiovascular Cardiovascular exam: Present regular rate, normal rhythm and normal heart sounds Abdominal Exam Abdominal exam: Present soft, normal bowel sounds and scar; Absent distention, tenderness or guarding Extremities Exam Extremities exam: Present normal inspection and full ROM Back Exam Back exam: Present normal inspection and full ROM Neurological Exam Neurological exam: Present alert, oriented X3 and CN II-XII intact Psychiatric Psychiatric exam: Present normal affect and normal mood Skin Skin exam: Present warm, dry, intact and normal color Course Quality Measures none Vital Signs Vital signs: Vital Signs Temperature 98.5 F 06/01/25 17:55 Pulse Rate 89 06/01/25 17:55 Respiratory Rate 18 06/01/25 17:55 Blood Pressure 117/81 06/01/25 17:55 Pulse Oximetry (%) 99 06/01/25 17:55 Oxygen Delivery Method Room Air 06/01/25 17:55 O2 saturation 99% within normal limits Wound / Laceration MDM Narrative MDM Narrative:: 20-year-old female with no known medical history presents to the emergency room with a chief complaint of a scar opening. Patient is hemodynamically stable and in no apparent distress Physical examination shows a Small opening to her scar. The patient states she had a done on 05/06/2025 The incision is not warm to the touch and there is no drainage and there is a small 0.25 cm opening. Dermabond was used to close and approximated and the patient was discharged patient was discharged and educated to follow-up with primary care provider in the next 24 to 48 hours and return to the emergency room for any evidence of worsening signs or symptoms Patient data External records reviewed:: [facility] previous records Clinical information provided by:: patient Social determinants that could affect healthcare access:: none Patient has the following chronic illnesses:: No chronic illness How is presenting disease/condition affected by chronic disease/condition?: no chronic disease Evaluation data The following diagnostics were reviewed and interpreted by me:: lab results and radiology exam(s) Lab and/or radiology exams considered but not ordered:: Labs and radiology exams considered and ordered Interpretation Summary: N/A Medications / Prescriptions Medications or Prescriptions considered but not ordered:: Medication given Medication administrations:: No medication given Consultations Consultation(s) initiated? (list below): No Diagnosis Wound Differential Diagnosis: laceration, abscess, abrasion and other Most likely diagnosis given after review of the tests above:: Scar irritation Admission Indicated Admission indicated?: not indicated Admission Request Was there a request for admission?: No Disposition Plan Disposition Plan: Discharge Discharge Attestation Discharge Attestation: The patient and all family members were given an opportunity to ask questions and understood the discharge instructions. Discharge instructions specifically effects, indications for sooner follow up or return to the emergency department, and the expected course of current diagnosis. Patient condition: Stable Discharge Plan Plan Patient Disposition: HOME (Self Care) Discharge Disposition comment: Stable Prescriptions/Referrals Prescriptions/Med Rec: No Action PNV no.95-ferrous fumarate-FA [] 28 mg iron- 800 mcg Tablet 1 tab PO QDAY hydrocodone-acetaminophen 5-325 mg Tablet 2 tab PO Q6HR MDD 8 Qty: 40 0RF ibuprofen 400 mg Tablet 800 mg PO Q8HR PRN (Reason: Pain Scale 4-6 (Moderate) Qty: 60 0RF docusate sodium 100 mg Capsule 100 mg PO QDAY Qty: 30 0RF Problem List Clinical Impression: Scar irritation Patient/Caregiver Discharge Instructions Additional Instructions: Please follow-up with your primary care provider in the next 24 to 48 hours Your scar has a small opening. It was glued. Please follow-up with your primary care provider. For any evidence of worsening signs or symptoms return to the emergency room immediately Print Language: Norwegian Stand Alone Forms: Marisol Award Info., Patient Portal Info Letter PA/FINANCIAL INSTITUTION VICE PRESIDENT Supervising Physician PA/JULIA Supervising Physician: Dr. Calvert
[2025-06-01 18:40] VITALS: RESP 20; O2SAT 100
== END 2025-06-01 21:03 | disposition home or self-care (01) ==
LOC: SERX 18:25
PROVIDERS: Emergency Provider Podiatrist Foot & Ankle Surgery; PCP Family Medicine
DX: O90.0 Disruption of cesarean delivery wound (principal)
CPT/HCPCS: 99281